=== PATIENT | male | born 2000 | race Two or more races ===

== ENCOUNTER 2024-05-27 21:17 | Emergency (ER) | payer MEDICAID, OTHER ==
[~2024-05-27] VITALS: Ht 182.9 cm; Wt 87.2 kg
[2024-05-27] MEDS: DexAMETHasone SOD PHOS 10MG/1ML VIAL INJ IM ONE (23:17)
[2024-05-27] MEDS ORDERED: IBUP-1455 PO (23:58)
[2024-05-28 00:12] VITALS: BP 118/67; PULSE 78; RESP 17; TEMP 98.4; O2SAT 98
== END 2024-05-28 00:14 | disposition home or self-care (01) ==
LOC: ER 21:17
DX: S80.861A Insect bite (nonvenomous), right lower leg, initial encounter (principal); W57.XXXA Bitten or stung by nonvenomous insect and other nonvenomous arthropods, initial encounter; Y93.89 Activity, other specified; Y92.89 Other specified places as the place of occurrence of the external cause; Y99.8 Other external cause status
CPT/HCPCS: 96372; 99283; J1100